=== PATIENT | female | born 1995 | race Two or more races ===

== ENCOUNTER 2024-05-11 18:21 | Emergency (ER) | payer OTHER ==
[~2024-05-11] VITALS: Ht 160 cm; Wt 59.0 kg
[2024-05-11] MEDS ORDERED: LIDOCAINE 5% (PATCH) 1 EA PATCH TP ONE (21:42)
[2024-05-11] MEDS ORDERED: ACETAMINOPHEN ES 500 MG TABLET ONE (21:42)
[2024-05-11] MEDS ORDERED: CYCLOBENZAPRINE 10 MG TABLET ONE (21:43)
[2024-05-11] MEDS ORDERED: IBUPROFEN 600 MG TABLET ONE (21:43)
[2024-05-11] MEDS: CYCLOBENZAPRINE 10 MG TABLET PO ONE (21:48)
[2024-05-11] MEDS: LIDOCAINE 5% (PATCH) 1 EA PATCH TP ONE (21:49)
[2024-05-11] MEDS: ACETAMINOPHEN ES 500 MG TABLET PO ONE (21:49)
[2024-05-11] MEDS: IBUPROFEN 600 MG TABLET PO ONE (21:49)
[2024-05-11] MEDS ORDERED: IBUP-1955 PO (21:52)
[2024-05-11] MEDS ORDERED: CYCL5TAB PO (21:52)
[2024-05-11] MEDS ORDERED: ACET-2605 PO (21:52)
[2024-05-11 22:21] VITALS: BP 108/74; TEMP 98.1; O2SAT 98
== END 2024-05-11 22:21 | disposition home or self-care (01) ==
LOC: ER 18:33
DX: G89.29 Other chronic pain (principal); M54.50 Low back pain, unspecified; Z79.1 Long term (current) use of non-steroidal anti-inflammatories (NSAID); Z79.899 Other long term (current) drug therapy